=== PATIENT | female | born 1950 | race Caucasian/White ===

== ENCOUNTER 2023-02-26 14:53 | Outpatient (RCR) | payer MEDICARE | END 2023-03-10 | LOC: PT 14:53 | PROVIDERS: ATTEND Family Medicine | DX: M70.72 Other bursitis of hip, left hip (principal); M70.71 Other bursitis of hip, right hip; M62.81 Muscle weakness (generalized); M25.512 Pain in left shoulder; R26.89 Other abnormalities of gait and mobility ==

== ENCOUNTER 2023-03-19 14:59 | Outpatient (RCR) | payer MEDICARE | END 2023-04-09 | LOC: PT 14:59 | PROVIDERS: ATTEND Family Medicine | DX: M70.72 Other bursitis of hip, left hip (principal); M70.71 Other bursitis of hip, right hip; M25.512 Pain in left shoulder; M62.81 Muscle weakness (generalized); R26.89 Other abnormalities of gait and mobility ==